=== PATIENT | female | born 1960 | race Caucasian/White ===

== ENCOUNTER 2020-08-11 07:36 | Outpatient (REF) | payer BC, SELFPAY ==
[2020-08-11 08:16] LABS: Hematocrit 40.8 % (37-47); Hemoglobin 13.4 g/dl (12.0-16.0); Mean Corpuscular HGB Conc 32.8 g/dl (31.0-35.0); Mean Corpuscular Hemoglobin 30.2 pg (27.0-33.0); Mean Corpuscular Volume 91.9 fL (80-98); Mean Platelet Volume 10.8 fL (9.4-12.3); Platelet Count 275 X10*3/uL (160-400); Red Blood Count 4.44 X10*6/uL (4.20-5.50); Red Cell Distribution Width 12.5 % (11.0-16.0); White Blood Count 6.1 X10*3/uL (4.8-10.8)
[2020-08-11 08:28] LABS: Alanine Aminotransferase 16 U/L (0-31); Albumin Level 4.3 g/dL (3.5-5.0); Alkaline Phosphatase 55 U/L (39-117); Anion Gap 11 (12-20); Aspartate Amino Transferase 18 U/L (5-31); Bilirubin Direct 0.2 mg/dL (0.0-0.5); Bilirubin Total 0.7 mg/dL (0.0-1.0); Blood Urea Nitrogen 15 mg/dL (9-16); Carbon Dioxide 29 mmol/L (22-29); Chloride 100 mmol/L (96-108); Cholesterol 222 mg/dL; Estimated Glomerular Filt Rate > 60; Glucose Random 95 mg/dL (60-115); HDL Cholesterol 77 mg/dL; LDL Cholesterol Calculated 132 mg/dl; Potassium 4.2 mmol/L (3.3-5.1); Sodium 136 mmol/L (135-145); Total Protein 6.9 g/dL (6.5-8.0); Triglycerides 65 mg/dL
[2020-08-15 14:01] LABS: Vitamin D 25-OH, D2 <4 ng/mL; Vitamin D 25-OH, D3 17 ng/mL; Vitamin D 25-OH, Total 17 ng/mL (30-100)
== END 2020-08-11 07:37 | disposition home or self-care (01) ==
LOC: HO.LAB 07:36
PROVIDERS: PCP Internal Medicine; Visit Provider Internal Medicine
DX: E78.00 Pure hypercholesterolemia, unspecified (principal)
CPT/HCPCS: 36415; 80048; 80061; 80076; 82306; 85027

== ENCOUNTER 2021-02-08 07:46 | Outpatient (REF) | payer BC, SELFPAY ==
[2021-02-08 08:29] LABS: Hemoglobin 13.6 g/dl (12.0-16.0); Mean Corpuscular Hemoglobin 30.4 pg (27.0-33.0); Mean Corpuscular Volume 89.5 fL (80-98); Mean Platelet Volume 10.7 fL (9.4-12.3); Platelet Count 304 X10*3/uL (160-400); Red Blood Count 4.47 X10*6/uL (4.20-5.50); Red Cell Distribution Width 12.6 % (11.0-16.0); White Blood Count 6.4 X10*3/uL (4.8-10.8)
[2021-02-08 08:44] LABS: Estimated Average Glucose 103 mg/dL; Hemoglobin A1c % 5.2 %
[2021-02-08 09:06] LABS: Alanine Aminotransferase 15 U/L (0-31); Albumin Level 4.3 g/dL (3.5-5.0); Alkaline Phosphatase 52 U/L (39-117); Aspartate Amino Transferase 19 U/L (5-31); Bilirubin Direct 0.2 mg/dL (0.0-0.5); Bilirubin Total 0.5 mg/dL (0.0-1.0); Cholesterol 222 mg/dL; HDL Cholesterol 72 mg/dL; LDL Cholesterol Calculated 134 mg/dl; Total Protein 6.8 g/dL (6.5-8.0); Triglycerides 83 mg/dL
[2021-02-08 09:12] LABS: Appearance Urine CLEAR; Color Urine YELLOW; Glucose Urine UA NEG (NEG); Leukocyte Esterase Urine NEG (NEG); Nitrite Urine NEG (NEG); PH 6.5 (5.0-8.0); Specific Gravity - Urine <= 1.005 (1.005-1.025); Urine Blood NEG (NEG); Urine Ketones NEG (NEG); Urine Protein NEG (NEG-TRACE)
== END 2021-02-08 07:47 | disposition home or self-care (01) ==
LOC: HO.LAB 07:46
PROVIDERS: PCP Internal Medicine; Visit Provider Internal Medicine
DX: I10 Essential (primary) hypertension (principal)
CPT/HCPCS: 36415; 80061; 80076; 81003; 83036; 84443; 85027

== ENCOUNTER 2022-01-24 07:51 | Outpatient (REF) | payer OTHER, SELFPAY ==
[2022-01-24 08:33] LABS: Hematocrit 40.3 % (37.0-47.0); Hemoglobin 13.8 g/dl (12.0-16.0); Mean Corpuscular HGB Conc 34.2 g/dl (31.0-35.0); Mean Corpuscular Hemoglobin 31.3 pg (27.0-33.0); Mean Corpuscular Volume 91.4 fL (80.0-98.0); Mean Platelet Volume 10.9 fL (9.4-12.3); Platelet Count 292 X10*3/uL (160-400); Red Blood Count 4.41 X10*6/uL (4.20-5.50); Red Cell Distribution Width 11.9 % (11.0-16.0); White Blood Count 5.8 X10*3/uL (4.8-10.8)
[2022-01-24 08:56] LABS: Alanine Aminotransferase 22 U/L (0-31); Albumin Level 4.4 g/dL (3.5-5.0); Alkaline Phosphatase 51 U/L (39-117); Anion Gap 17 (12-20); Aspartate Amino Transferase 20 U/L (5-31); Bilirubin Direct 0.3 mg/dL (0.0-0.5); Bilirubin Total 0.7 mg/dL (0.0-1.0); Blood Urea Nitrogen 13 mg/dL (9-16); Calcium 9.5 mg/dL (8.4-10.2); Carbon Dioxide 25 mmol/L (22-29); Chloride 98 mmol/L (96-108); Cholesterol 261 mg/dL; Estimated Glomerular Filt Rate > 60; Glucose Random 103 mg/dL (60-115); HDL Cholesterol 75 mg/dL; LDL Cholesterol Calculated 175 mg/dl; Potassium 4.5 mmol/L (3.3-5.1); Sodium 135 mmol/L (135-145); Triglycerides 59 mg/dL
[2022-01-24 09:20] LABS: Thyroid Stimulating Hormone 0.18 uIU/mL (0.32-4.0)
== END 2022-01-24 07:52 | disposition home or self-care (01) ==
LOC: HO.LAB 07:51
PROVIDERS: PCP Internal Medicine; Visit Provider Internal Medicine
DX: I10 Essential (primary) hypertension (principal); E78.00 Pure hypercholesterolemia, unspecified
CPT/HCPCS: 36415; 80048; 80061; 80076; 84443; 85027

== ENCOUNTER 2022-03-07 10:04 | Outpatient (REF) | payer OTHER, SELFPAY ==
[2022-03-07 11:36] LABS: Thyroid Stimulating Hormone 0.45 uIU/mL (0.32-4.0)
== END 2022-03-07 10:05 | disposition home or self-care (01) ==
LOC: HO.LAB 10:04
PROVIDERS: PCP Internal Medicine; Visit Provider Internal Medicine
DX: E03.9 Hypothyroidism, unspecified (principal)
CPT/HCPCS: 36415; 84443

== ENCOUNTER 2022-07-27 14:18 | Outpatient (REF) | payer OTHER, SELFPAY ==
--- NOTE | ~2022-07-27 | MM_ITS ---
EXAMINATION: MM SCREENING DIGITAL BREAST TOMOSYNTHESIS, BILATERAL CLINICAL INFORMATION: Screening. Asymptomatic. Status post right breast lumpectomy COMPARISON: Mammography: January 31, 2021 and studies dating back to November 07, 2018 TECHNIQUE: Digital breast tomosynthesis is performed in both the craniocaudal and mediolateral oblique views along with computer-aided detection (CAD). Synthesized 2D images are generated from the tomosynthesis. FINDINGS: The breasts are heterogeneously dense, which may obscure small masses (ACR BI-RADS breast composition Category c). There are no new significant masses, abnormal calcifications, or other abnormalities. Postsurgical and radiation change seen within the right breast. MM/MM tomosynthesis screening BI IMPRESSION: No significant changes from prior exam. ASSESSMENT: BI-RADS 2: Benign RECOMMENDATION: Routine annual mammography screening. This patient's information was entered into a reminder system with a target due date for their next mammogram.
== END 2022-07-27 14:19 | disposition home or self-care (01) ==
LOC: HO.MAMMO 14:18
PROVIDERS: Visit Provider Internal Medicine
DX: Z12.31 Encounter for screening mammogram for malignant neoplasm of breast (principal)
CPT/HCPCS: 77063; 77067

== ENCOUNTER 2022-11-08 08:26 | Outpatient (AMB) | payer OTHER, SELFPAY ==
--- NOTE | 2022-11-08 08:34 | MHC.PC.OV ---
Vital Signs 11/08/22 08:36 Height 5 ft 7 in Weight 194 lb 4 oz BMI 30.4 BP 140/80 H Blood Pressure Location Lt brachial Position Sitting Pulse 79 Pulse Source Pulse Oximeter Pulse Oximetry (%) 98 Oxygen Delivery Method Room Air Intake Visit Reasons: 9 month f/u Intake Note: Patient is here to follow up on HTN. Rod Machine Operator Required: No Licensed Prosthetist/Orthotist: Not Required per policy Accompanied by: Self / Same As Patient Allergies clindamycin Allergy (Mild, Verified 11/08/22 08:59) unknown amoxicillin Allergy (Unknown, Verified 11/08/22 08:59) hives environmental allergies Allergy (Mild, Uncoded 11/08/22 08:59) itch eye, runny nose, Medication List - Last Reconciled 11/08/22 by Catrachito Gay MD clonazepam (Klonopin) 0.5 mg PO DAILY fexofenadine (Rupal Allergy) 180 mg PO DAILY fluticasone propionate 50 mcg/actuation 1 spray intranasal DAILY hydrochlorothiazide 12.5 mg PO DAILY levothyroxine 112 mcg PO QAM lisinopril 10 mg PO DAILY red yeast rice 600 mg PO BID Tobacco use date assessed: 11/08/22 Dental Screening Dental Screen Date: 11/08/22 Did you have a dental visit in the last 12 months?: Yes Did you have a dental problem in the last 6 months where you did not have access to dental care?: No Was dental information given to patient?: Patient has dentist HPI 9 month f/u HPI Details 62-year-old female presents to the office to discuss her chronic medical conditions. Patient is compliant with all medications and reporting no side effects. Her blood pressure is in range. She has not gotten her blood work done yet. Patient has 2 swellings a in her neck on either side that she would like examined. She cannot recall the duration of the swellings. No weight loss. [facility] Medical History Allergic rhinitis Borderline hypercholesterolemia Breast cancer Essential (primary) hypertension Surgical History History of eyelid surgery History of lumpectomy of right breast History of wisdom tooth extraction Family History Mother No problems noted. Father No problems noted. Social History Housing: House Alcohol intake: current Alcohol intake frequency: holidays/special occasions only Alcohol type: wine Patient Tobacco Use Status: Former Tobacco user (2006) Quit Date: 2006 e-Cigarette/Vaping Use: Never Used Second Hand Smoke Exposure: No service: No Current occupational status: retired Cognitive needs: No Hearing needs: No Vision needs: Yes Questionnaire PHQ-9 Over the last 2 weeks, how often have you been bothered by any of the following problems? 1. Little interest or pleasure in doing things: not at all 2. Feeling down, depressed, or hopeless: not at all 3. Trouble falling or staying asleep, or sleeping too much: not at all 4. Feeling tired or having little energy: not at all 5. Poor appetite or overeating: not at all 6. Feeling bad about yourself - or that you are a failure or have let yourself or your family down: not at all 7. Trouble concentrating on things, such as reading the newspaper or watching television: not at all 8. Moving or speaking so slowly that other people could have noticed. Or the opposite - being so fidgety or restless that you have been moving around a lot more than usual: not at all 9. Thoughts that you would be better off or of hurting yourself in some way: not at all Total score: 0 Depression Screening Interpretation: Negative Source: Developed by Drs. Jovon Austin, Sera Peña, Tonny Gilmore and colleagues, with an educational osmar from [employer]. Thrive Questionnaire Date Thrive assessed: 11/08/22 I am a: Patient What is your living situation today?: I have a steady place to live Within the past 12 months, did the food you bought not last and you didn't have the money to get more?: Never true Within the past 12 months, did you worry whether your food would run out before you got money to buy more?: Never true Do you have trouble paying for medicines?: No Do you have trouble getting transportation to medical appointments?: No Do you have trouble paying your heating and electricity bill?: No Do you have trouble taking care of your child, family member or friend?: No Do you have trouble with day-to-day activities such as bathing, preparing meals, shopping, managing finances, etc.?: No Are you currently unemployed and looking for a job?: No Are you interested in more education?: No Currently or been in a relationship where the following occur: no concerns reported AUDIT C Alcohol Use Questionnaire (AUDIT-C) 1. How often do you have a drink containing alcohol?: Monthly or less 2. How many drinks containing alcohol do you have on a typical day when you are drinking?: 1 or 2 Total Score: 1 ISRAEL-7 AMB Questionnaire ISRAEL-7 Date ISRAEL - 7 assessed: 11/08/22 Feeling nervous, anxious, or on edge: 1 = Several days Not being able to stop or control worryin = Not at all Worrying too much about different things: 0 = Not at all Trouble relaxin = Not at all Being so restless that it is hard to sit still: 0 = Not at all Becoming easily annoyed or irritable: 0 = Not at all Feeling afraid as if something awful might happen: 0 = Not at all Total ISRAEL-7 score (0-4 normal; 5-9 mild; 10-14 moderate; 15-21 severe): 1 Source: Developed by Drs. Jovon Austin, Sera Peña, Tonny Gilmore and colleagues, with an educational osmar from [employer]. Physical exam (Primary Care) Vital Signs: Last Vital Signs Pulse 79 11/08/22 08:36 BP 140/80 H 11/08/22 08:36 Pulse Ox 98 11/08/22 08:36 Oxygen Delivery Method Room Air 11/08/22 08:36 Care Plan Goal for BP management: Blood pressure is in range. Continue current medications. BMI result Body Mass Index 30.4 BMI Assessment/Plan discussion: High (1 lb per week weight loss suggested.) BMI High, discussed plan: lifestyle Tobacco/Smoking Status: Tobacco use Status Tobacco use date assessed 11/08/22 11/08/22 08:37 Patient Tobacco Use Status Former Tobacco user (2006) 11/08/22 08:37 e-Cigarette/Vaping Use Never Used 11/08/22 08:37 PHQ-9: PHQ-9 Score PHQ-9: Total score 0 11/08/22 08:37 Depression Screening Interpretation: Negative Thrive Assessment: Date of Thrive Assessment Date Thrive assessed 11/08/22 11/08/22 08:37 Currently or been in a relationship where the following occur: no concerns reported Advance Care Planning discussion: On file, no changes Date of discussion: 11/08/22 Who was present: Patient Forms completed: MOLST Time spent: 1-15 minutes, on File Actual minutes spent: 5 Const General: cooperative, healthy appearing and comfortable HENMT Other: Neck: Bilateral swelling, mostly in the supraclavicular fossa, indistinct margin. Head: Yes normal to inspection and Yes atraumatic Eyes General: appearance normal, both eyes and all related structures Neck Neck: Yes normal visual inspection and Yes full ROM Chest Chest palpation & inspection: normal inspection of the chest and crepitus Resp Effort & Inspection: normal respiratory effort Auscultation: clear to auscultation bilaterally Cardio Jugular venous distension: no JVD Palpation: normal PMI Rate: regular rate Heart sounds: S1 normal heart sound present and S2 normal heart sound present GI Palpation (GI): Soft to palpation, Tenderness to palpation present (GI) and No hepatosplenomegaly present Extrem General: Yes normal to inspection and Yes full ROM Assessment and Plan Assessment & Plan (1) Borderline hypercholesterolemia: Code(s): E78.00 - Pure hypercholesterolemia, unspecified Plan: Blood work ordered. Will call with results. (2) Essential (primary) hypertension: Code(s): I10 - Essential (primary) hypertension Plan: Blood pressure in range. Will continue medications at same dosage. Blood work has been ordered. (3) Breast cancer: Code(s): C50.919 - Malignant neoplasm of unspecified site of unspecified female breast Plan: Condition is stable. (4) Lipoma: Code(s): D17.9 - Benign lipomatous neoplasm, unspecified Plan: Neck swelling is most likely a lipoma. Will await ultrasound results. Orders: Orders Basic Metabolic Panel Today C50.919 - Malignant neoplasm of unspecified site of unspecified female breast, E78.00 - Pure hypercholesterolemia, unspecified, I10 - Essential (primary) hypertension Hemoglobin A1c Today C50.919 - Malignant neoplasm of unspecified site of unspecified female breast, E78.00 - Pure hypercholesterolemia, unspecified, I10 - Essential (primary) hypertension Lipid Panel Today C50.919 - Malignant neoplasm of unspecified site of unspecified female breast, E78.00 - Pure hypercholesterolemia, unspecified, I10 - Essential (primary) hypertension Liver Panel Today C50.919 - Malignant neoplasm of unspecified site of unspecified female breast, E78.00 - Pure hypercholesterolemia, unspecified, I10 - Essential (primary) hypertension Thyroid Stimulating Hormone Today C50.919 - Malignant neoplasm of unspecified site of unspecified female breast, E78.00 - Pure hypercholesterolemia, unspecified, I10 - Essential (primary) hypertension Complete Blood Count no Diff Today C50.919 - Malignant neoplasm of unspecified site of unspecified female breast, E78.00 - Pure hypercholesterolemia, unspecified, I10 - Essential (primary) hypertension UA and rflx microscopic Today C50.919 - Malignant neoplasm of unspecified site of unspecified female breast, E78.00 - Pure hypercholesterolemia, unspecified, I10 - Essential (primary) hypertension XR DEXA axial skeleton Today M81.0 - Age-related osteoporosis without current pathological fracture US soft tiss head and/or neck Today D17.9 - Benign lipomatous neoplasm, unspecified Coding Level of Care Code Est Pt Level 4 (71117) Diagnoses Borderline hypercholesterolemia E78.00 Essential (primary) hypertension I10 Breast cancer C50.919 Lipoma D17.9 Additional Codes Vital Signs *Quality* - Advance Care Planning discussion: On file, no changes ([id number]) Vital Signs *Quality* - Time spent: 1-15 minutes, on File ([id number])
[2022-11-08 08:36] VITALS: BP 140/80; PULSE 79; O2SAT 98; BMI 30.4
== END 2022-11-08 08:52 | disposition home or self-care (01) ==
PROVIDERS: PCP Internal Medicine; Visit Provider Internal Medicine
DX: E78.00 Pure hypercholesterolemia, unspecified (principal); I10 Essential (primary) hypertension; C50.911 Malignant neoplasm of unspecified site of right female breast; D17.0 Benign lipomatous neoplasm of skin and subcutaneous tissue of head, face and neck
CPT/HCPCS: 1123F; 99214

== ENCOUNTER 2022-11-16 08:02 | Outpatient (REF) | payer OTHER, SELFPAY ==
--- NOTE | ~2022-11-16 | MM_ITS ---
EXAMINATION: BONE DENSITOMETRY CLINICAL INDICATION: Age-related osteoporosis without current pathological fracture. COMPARISON: This is the patient's baseline examination. TECHNIQUE: Using a RED [employer]OVA DXA System (software version: 13.1) manufactured by [employer], dual-energy x-ray absorptiometry was performed of the lumbar spine and left hip. The images are of good technical quality. Summary results are attached. FINDINGS: AP SPINE L1-L4: BMD 0.922 g/cm2, Z-score -1.5, T-score -2.1, osteopenia. LEFT FEMUR, NECK: BMD 0.871 g/cm2, Z-score -0.3, T-score -1.2, osteopenia. LEFT FEMUR, TOTAL: BMD 0.951 g/cm2, Z-score 0.1, T-score -0.4, normal. IDENTIFIED RISK FACTORS: Height loss, history of fracture (adult). Early menopause, secondary osteoporosis. HISTORY OF FRACTURE: Other. MEDICATIONS: None listed. MM/XR DEXA axial skeleton IMPRESSION: 1. DIAGNOSIS: Osteopenia based on the lowest T-score value of -2.1 in the lumbar spine applying World Health Organization criteria. 2. 10-YEAR FRACTURE RISK PREDICTION, FRAX: Major osteoporotic fracture (clinical spine, forearm, hip or shoulder) 12.7%. Hip fracture 1.0%. 3. Treatment Recommendations: NOF guidelines recommend consideration for treatment in postmenopausal women and men age 50 and older presenting with the following: -A hip or vertebral (clinical or morphometric) fracture. -T-score less than or equal to -2.5 at the femoral neck or spine after appropriate evaluation to exclude secondary causes. -Low bone mass at the hip or spine and a 10-year fracture probability by FRAX of greater than or equal to 3% for hip fracture or greater than or equal to 20% for major osteoporotic fracture based on the [place] adapted WHO algorithm. 4. Other Recommendations: All treatment decisions require clinical judgment and consideration of individual patient factors, including patient preferences, comorbidities, previous drug use, risk factors not captured in the FRAX model (e.g. frailty, falls, vitamin D deficiency, increased bone turnover, interval significant decline in bone density) and possible under or overestimation of fracture risk by FRAX. Additional medical evaluation for secondary cause of low bone mineral density may be appropriate. FUTURE SCAN RECOMMENDATION: People with diagnosed cases of osteoporosis or at high risk for fracture should have regular bone mineral density tests. For patients eligible for Medicare, routine testing is allowed once every 2 years. The testing frequency can be increased to one year for patients who have rapidly progressing disease, those who are receiving or discontinuing medical therapy to restore bone mass, or have additional risk factors.
== END 2022-11-16 08:03 | disposition home or self-care (01) ==
LOC: HO.MAMMO 08:02
PROVIDERS: Visit Provider Internal Medicine
DX: Z13.820 Encounter for screening for osteoporosis (principal); M81.0 Age-related osteoporosis without current pathological fracture; Z78.0 Asymptomatic menopausal state
CPT/HCPCS: 77080

== ENCOUNTER → 2022-11-16 08:15 | Outpatient (BNV) | payer OTHER, SELFPAY | PROVIDERS: Visit Provider Radiology Diagnostic Radiology | DX: M81.0 Age-related osteoporosis without current pathological fracture (principal) | CPT/HCPCS: 77080 ==

== ENCOUNTER 2022-11-20 06:54 | Outpatient (REF) | payer OTHER, SELFPAY ==
--- NOTE | ~2022-11-20 | US_ITS ---
EXAMINATION: US SOFT TISSUE NECK CLINICAL INFORMATION: Supraclavicular swelling COMPARISON: None available. TECHNIQUE: Ultrasound of the neck soft tissues is performed with high- frequency perla-scale imaging and color Doppler. FINDINGS: Bilateral supraclavicular nodes measuring up to 1.1 x 0.6 m on the right and 0.6 x 0.4 cm on the left. These maintain normal hilar architecture. US/US soft tiss head and/or neck IMPRESSION: 1. Bilateral supraclavicular nodes not pathologically enlarged which maintains normal hilar architecture. If any clinically worrisome features 3 month ultrasound follow-up to assess stability could be obtained.
[2022-11-20 08:14] LABS: Hemoglobin 14.1 g/dl (12.0-16.0); Mean Corpuscular HGB Conc 33.6 g/dl (31.0-35.0); Mean Corpuscular Hemoglobin 30.5 pg (27.0-33.0); Mean Corpuscular Volume 90.9 fL (80.0-98.0); Mean Platelet Volume 11.5 fL (9.4-12.3); Platelet Count 299 X10*3/uL (160-400); Red Blood Count 4.62 X10*6/uL (4.20-5.50); Red Cell Distribution Width 12.6 % (11.0-16.0); White Blood Count 6.4 X10*3/uL (4.8-10.8)
[2022-11-20 08:18] LABS: Estimated Average Glucose 103 mg/dL; Hemoglobin A1c % 5.2 %
[2022-11-20 08:49] LABS: Alanine Aminotransferase 22 U/L (0-31); Albumin Level 4.1 g/dL (3.5-5.0); Alkaline Phosphatase 63 U/L (39-117); Anion Gap 16 (12-20); Aspartate Amino Transferase 22 U/L (5-31); Bilirubin Direct 0.2 mg/dL (0.0-0.5); Bilirubin Total 0.5 mg/dL (0.0-1.0); Blood Urea Nitrogen 11 mg/dL (9-16); Calcium 9.2 mg/dL (8.4-10.2); Carbon Dioxide 21 mmol/L (22-29); Chloride 103 mmol/L (96-108); Cholesterol 250 mg/dL; Estimated Glomerular Filt Rate > 60; Glucose Random 108 mg/dL (60-115); HDL Cholesterol 57 mg/dL; LDL Cholesterol Calculated 152 mg/dl; Potassium 3.8 mmol/L (3.3-5.1); Sodium 136 mmol/L (135-145); Total Protein 7.1 g/dL (6.5-8.0); Triglycerides 205 mg/dL
[2022-11-20 09:03] LABS: Thyroid Stimulating Hormone 3.88 uIU/mL (0.32-4.0)
[2022-11-20 19:41] LABS: Appearance Urine Clear; Color Urine Yellow; Glucose Urine UA Negative (Negative); Leukocyte Esterase Urine Negative (Negative); Nitrite Urine Negative (Negative); Urine Blood Negative (Negative); Urine Ketones Negative (Negative); Urine Protein Negative (Neg-Trace)
== END 2022-11-20 06:55 | disposition home or self-care (01) ==
LOC: HO.US 06:54
PROVIDERS: PCP Internal Medicine; Visit Provider Internal Medicine
DX: D17.9 Benign lipomatous neoplasm, unspecified (principal); C50.919 Malignant neoplasm of unspecified site of unspecified female breast; E78.00 Pure hypercholesterolemia, unspecified; I10 Essential (primary) hypertension
CPT/HCPCS: 36415; 76536; 80048; 80061; 80076; 81003; 83036; 84443; 85027

== ENCOUNTER 2023-05-24 08:45 | Outpatient (AMB) | payer OTHER, SELFPAY ==
--- NOTE | 2023-05-24 08:46 | MHC.PC.OV ---
Vital Signs 05/24/23 08:48 Height 5 ft 7 in Weight 191 lb 2 oz BMI 29.9 BP 122/78 Blood Pressure Location Lt brachial Position Sitting Pulse 110 H Pulse Source Pulse Oximeter Pulse Oximetry (%) 98 Oxygen Delivery Method Room Air Intake Visit Reasons: 6mth f/u ( Medication) Intake Note: Patient is here to follow up on HTN, Hypercholesterolemia and medication review. Complaint of scratchy throat, sinus congestion, had covid early April 2023 Therapy Technician Required: No Remote Sensing Analyst: Not Required per policy Accompanied by: Self / Same As Patient Allergies clindamycin Allergy (Mild, Verified 05/27/23 18:14) unknown amoxicillin Allergy (Unknown, Verified 05/27/23 18:14) hives environmental allergies Allergy (Mild, Uncoded 05/27/23 18:14) itch eye, runny nose, Medication List - Last Reconciled 05/27/23 by Catrachito Gay MD atorvastatin 10 mg PO BEDTIME cholecalciferol (vitamin D3) (Dialyvite Vitamin D3 Max) 1,250 mcg PO QWEEK clonazepam (Klonopin) 0.5 mg PO DAILY fexofenadine (Rupal Allergy) 180 mg PO DAILY hydrochlorothiazide 12.5 mg PO DAILY levothyroxine 112 mcg PO QAM lisinopril 10 mg PO DAILY Tobacco use date assessed: 05/24/23 Fall risk assessment: No Falls in past year Last assessed Fall Risk: 05/24/23 Dental Screening Dental Screen Date: 05/24/23 Did you have a dental visit in the last 12 months?: Yes Did you have a dental problem in the last 6 months where you did not have access to dental care?: No Was dental information given to patient?: Patient has dentist HPI 6mth f/u ( Medication) HPI Details 63-year-old female presents to the office to discuss her chronic medical conditions. Her previous ultrasound of the neck had suggested lymph nodes with normal architecture. The swelling is still present. There has been no increase or decrease in size. No associated pain Patient otherwise has been in good health. Able to function and do all activities of daily living. [facility] Medical History (Updated 05/27/23 @ 18:17 by Catrachito Gay MD) Lymphadenopathy Breast cancer Essential (primary) hypertension Allergic rhinitis Borderline hypercholesterolemia Surgical History History of eyelid surgery History of lumpectomy of right breast History of wisdom tooth extraction Family History Mother No problems noted. Father No problems noted. Social History Housing: House Alcohol intake: current Alcohol intake frequency: holidays/special occasions only Alcohol type: wine Patient Tobacco Use Status: Former Tobacco user (2006) Quit Date: 2006 e-Cigarette/Vaping Use: Never Used Second Hand Smoke Exposure: No service: No Current occupational status: retired Cognitive needs: No Hearing needs: No Vision needs: Yes Questionnaire PHQ-9 Over the last 2 weeks, how often have you been bothered by any of the following problems? 1. Little interest or pleasure in doing things: not at all 2. Feeling down, depressed, or hopeless: not at all 3. Trouble falling or staying asleep, or sleeping too much: not at all 4. Feeling tired or having little energy: not at all 5. Poor appetite or overeating: not at all 6. Feeling bad about yourself - or that you are a failure or have let yourself or your family down: not at all 7. Trouble concentrating on things, such as reading the newspaper or watching television: not at all 8. Moving or speaking so slowly that other people could have noticed. Or the opposite - being so fidgety or restless that you have been moving around a lot more than usual: not at all 9. Thoughts that you would be better off or of hurting yourself in some way: not at all Total score: 0 Depression Screening Interpretation: Negative Depression Screening Done: Yes Source: Developed by Drs. Jovon Austin, Sera Peña, Tonny Gilmore and colleagues, with an educational osmar from [employer]. Thrive Questionnaire Date Thrive assessed: 05/24/23 I am a: Patient What is your living situation today?: I have a steady place to live Within the past 12 months, did the food you bought not last and you didn't have the money to get more?: Never true Within the past 12 months, did you worry whether your food would run out before you got money to buy more?: Never true Do you have trouble paying for medicines?: No Do you have trouble getting transportation to medical appointments?: No Do you have trouble paying your heating and electricity bill?: No Do you have trouble taking care of your child, family member or friend?: No Do you have trouble with day-to-day activities such as bathing, preparing meals, shopping, managing finances, etc.?: No Are you currently unemployed and looking for a job?: No Are you interested in more education?: No Currently or been in a relationship where the following occur: no concerns reported THRIVE Score: 0 AUDIT C Alcohol Use Questionnaire (AUDIT-C) 1. How often do you have a drink containing alcohol?: Monthly or less 2. How many drinks containing alcohol do you have on a typical day when you are drinking?: 1 or 2 Total Score: 1 ISRAEL-7 AMB Questionnaire ISRAEL-7 Date ISRAEL - 7 assessed: 05/24/23 Feeling nervous, anxious, or on edge: 0 = Not at all Not being able to stop or control worryin = Not at all Worrying too much about different things: 0 = Not at all Trouble relaxin = Not at all Being so restless that it is hard to sit still: 0 = Not at all Becoming easily annoyed or irritable: 0 = Not at all Feeling afraid as if something awful might happen: 0 = Not at all Total ISRAEL-7 score (0-4 normal; 5-9 mild; 10-14 moderate; 15-21 severe): 0 Source: Developed by Drs. Jovon Austin, Sera Peña, Tonny Gilmore and colleagues, with an educational osmar from [employer]. Physical exam (Primary Care) Vital Signs: Last Vital Signs Pulse 110 H 05/24/23 08:48 BP 122/78 05/24/23 08:48 Pulse Ox 98 05/24/23 08:48 Oxygen Delivery Method Room Air 05/24/23 08:48 BMI result Body Mass Index 29.9 Tobacco/Smoking Status: Tobacco use Status Tobacco use date assessed 05/24/23 05/24/23 08:51 Patient Tobacco Use Status Former Tobacco user (2006) 05/24/23 08:51 e-Cigarette/Vaping Use Never Used 05/24/23 08:51 PHQ-9: PHQ-9 Score PHQ-9: Total score 0 05/24/23 08:51 Depression Screening Interpretation: Negative Thrive Assessment: Date of Thrive Assessment Date Thrive assessed 05/24/23 05/24/23 08:51 Currently or been in a relationship where the following occur: no concerns reported Const General: cooperative and healthy appearing Nutritional Appearance: well nourished Orientation/consciousness: patient oriented x3 Limitations: no limitations HENMT Head: Yes normal to inspection Eyes General: appearance normal, both eyes and all related structures Neck Other: Persisting swelling bilaterally. No change in size. Neck: Yes normal visual inspection Chest Chest palpation & inspection: normal palpation of entire chest wall Resp Effort & Inspection: normal respiratory effort Neuro General: patient oriented x3 Assessment and Plan Assessment & Plan (1) Borderline hypercholesterolemia: Code(s): E78.00 - Pure hypercholesterolemia, unspecified Plan: Fasting bw has been requested. Will call with results. (2) Essential (primary) hypertension: Code(s): I10 - Essential (primary) hypertension Plan: BP is in range. Continue current medications. (3) Breast cancer: Code(s): C50.919 - Malignant neoplasm of unspecified site of unspecified female breast Plan: This condition is stable. (4) Lymphadenopathy: Code(s): R59.1 - Generalized enlarged lymph nodes Plan: US of the neck will be reordered to check the size of the lymphnodes Orders: Orders Complete Blood Count no Diff 05/24/23 C50.919 - Malignant neoplasm of unspecified site of unspecified female breast, E78.00 - Pure hypercholesterolemia, unspecified, I10 - Essential (primary) hypertension Liver Panel 05/24/23 C50.919 - Malignant neoplasm of unspecified site of unspecified female breast, E78.00 - Pure hypercholesterolemia, unspecified, I10 - Essential (primary) hypertension Lipid Panel 05/24/23 C50.919 - Malignant neoplasm of unspecified site of unspecified female breast, E78.00 - Pure hypercholesterolemia, unspecified, I10 - Essential (primary) hypertension Vitamin D 25-OH (D2 and D3) 05/24/23 C50.919 - Malignant neoplasm of unspecified site of unspecified female breast, E78.00 - Pure hypercholesterolemia, unspecified, I10 - Essential (primary) hypertension Basic Metabolic Panel 05/24/23 C50.919 - Malignant neoplasm of unspecified site of unspecified female breast, E78.00 - Pure hypercholesterolemia, unspecified, I10 - Essential (primary) hypertension Thyroid Stimulating Hormone 05/24/23 C50.919 - Malignant neoplasm of unspecified site of unspecified female breast, E78.00 - Pure hypercholesterolemia, unspecified, I10 - Essential (primary) hypertension Coding Level of Care Code Est Pt Level 4 (21156) Diagnoses Borderline hypercholesterolemia E78.00 Essential (primary) hypertension I10 Breast cancer C50.919 Lymphadenopathy R59.1
[2023-05-24 08:48] VITALS: BP 122/78; PULSE 110; O2SAT 98; BMI 29.9
== END 2023-05-24 09:43 | disposition home or self-care (01) ==
PROVIDERS: PCP Internal Medicine; Visit Provider Internal Medicine
DX: E78.00 Pure hypercholesterolemia, unspecified (principal); I10 Essential (primary) hypertension; C50.919 Malignant neoplasm of unspecified site of unspecified female breast; R59.1 Generalized enlarged lymph nodes
CPT/HCPCS: 99214

== ENCOUNTER 2023-06-19 07:19 | Outpatient (REF) | payer OTHER, SELFPAY ==
--- NOTE | ~2023-06-19 | US_ITS ---
EXAMINATION: US SOFT TISSUE HEAD/NECK CLINICAL INFORMATION: Generalized enlarged lymph nodes. COMPARISON: Ultrasound soft tissue neck 11/20/2022. TECHNIQUE: Linear transducer perla-scale and color Doppler examination of the bilateral subclavicular areas. FINDINGS: A reniform right supraclavicular hypoechoic mass with echogenic center and vascular flow to the hilum measures 0.9 x 0.5 x 0.4 cm. A reniform right supraclavicular hypoechoic mass with echogenic center and vascular flow to the hilum measures 0.8 x 0.4 x 0.4 cm. A reniform left supraclavicular hypoechoic mass measures 0.7 x 0.4 x 0.6 cm. A reniform left supraclavicular hypoechoic mass measures 0.9 x 0.4 x 0.4 cm with echogenic center and vascular flow to the hilum. US/US soft tiss head and/or neck IMPRESSION: Bilateral supraclavicular lymph nodes as described above. These lymph nodes are subcentimeter with benign architecture. There is overall stability. The decision to follow the area of concern should be based on the clinical assessment. If clinically indicated further cross-sectional imaging could be performed.
[2023-06-19 07:44] LABS: Hematocrit 39.7 % (37.0-47.0); Hemoglobin 13.5 g/dl (12.0-16.0); Mean Corpuscular Volume 88.2 fL (80.0-98.0); Mean Platelet Volume 10.6 fL (9.4-12.3); Platelet Count 311 X10*3/uL (160-400); Red Cell Distribution Width 12.4 % (11.0-16.0); White Blood Count 6.8 X10*3/uL (4.8-10.8)
[2023-06-19 08:19] LABS: Alanine Aminotransferase 24 U/L (0-31); Albumin Level 4.2 g/dL (3.5-5.0); Alkaline Phosphatase 60 U/L (39-117); Anion Gap 12 (12-20); Aspartate Amino Transferase 21 U/L (5-31); Bilirubin Direct 0.2 mg/dL (0.0-0.5); Bilirubin Total 0.7 mg/dL (0.0-1.0); Blood Urea Nitrogen 12 mg/dL (9-16); Calcium 9.3 mg/dL (8.4-10.2); Carbon Dioxide 27 mmol/L (22-29); Chloride 97 mmol/L (96-108); Cholesterol 193 mg/dL (<200); Estimated Glomerular Filt Rate > 60; Glucose Random 108 mg/dL (60-115); HDL Cholesterol 74 mg/dL (>40); LDL Cholesterol Calculated 103 mg/dL (<100); Potassium 3.8 mmol/L (3.3-5.1); Sodium 132 mmol/L (135-145); Total Protein 7.1 g/dL (6.5-8.0); Triglycerides 83 mg/dL (<150)
[2023-06-19 08:35] LABS: Thyroid Stimulating Hormone 0.25 uIU/mL (0.32-4.0)
[2023-06-23 15:49] LABS: Vitamin D 25-OH, D2 <4 ng/mL; Vitamin D 25-OH, D3 54 ng/mL; Vitamin D 25-OH, Total 54 ng/mL (30-100)
== END 2023-06-19 07:20 | disposition home or self-care (01) ==
LOC: HO.US 07:19
PROVIDERS: PCP Internal Medicine; Visit Provider Internal Medicine
DX: E78.00 Pure hypercholesterolemia, unspecified (principal); I10 Essential (primary) hypertension; C50.919 Malignant neoplasm of unspecified site of unspecified female breast; R59.1 Generalized enlarged lymph nodes
CPT/HCPCS: 36415; 76536; 80048; 80061; 80076; 82306; 84443; 85027

== ENCOUNTER 2023-08-01 09:02 | Outpatient (AMB) | payer OTHER, SELFPAY ==
--- NOTE | 2023-08-01 09:03 | A.OFFVIS_ITS ---
Intake Vital Signs 08/01/23 09:11 Height 5 ft 7 in Weight 193 lb BMI 30.2 BP 147/78 H Blood Pressure Location Lt brachial Position Sitting Pulse 80 Intake Visit Reasons: enlarged lymph nodes RT supraclavicular Intake Note: This patient presents for an assessment for enlarged lymph nodes RT supraclavicular. Pt c/o; reports bilateral supraclavicular englarged lymph nodes, reports no pain, redness or dysphagia. Account Management Specialist Required: No Accompanied by: Self / Same As Patient Allergies clindamycin Allergy (Mild, Verified 08/01/23 09:12) unknown amoxicillin Allergy (Unknown, Verified 08/01/23 09:12) hives environmental allergies Allergy (Mild, Uncoded 08/01/23 09:12) itch eye, runny nose, Medication List - Last Reconciled 08/01/23 by Juan Cruz MD atorvastatin 10 mg PO BEDTIME cholecalciferol (vitamin D3) (Dialyvite Vitamin D3 Max) 1,250 mcg PO QWEEK clonazepam (Klonopin) 0.5 mg PO DAILY fexofenadine (Rupal Allergy) 180 mg PO DAILY hydrochlorothiazide 12.5 mg PO DAILY levothyroxine 112 mcg PO QAM lisinopril 10 mg PO DAILY Do you need a note to return to daycare/school/sports/work: No HPI enlarged lymph nodes RT supraclavicular HPI Details 63-year-old female referred for cervical lymph nodes. She actually says that she has noticed this fatty bump on both sides of the supraclavicular fossa for several months now. He had been sent for an ultrasound of the neck for this and this showed subcentimeter on both the left and the right supraclavicular areas. This did not appear to be pathologic She denies any fever chills or night sweats. She used to be a smoker but has quit for many years She also has history of right breast lumpectomy and axillary dissection for right breast cancer 30 years ago. She has had chronic lymphedema of the right arm since that time. [facility] Medical History (Updated 08/01/23 @ 09:33 by Juan Cruz MD) History of breast cancer Lymphadenopathy Breast cancer Essential (primary) hypertension Allergic rhinitis Borderline hypercholesterolemia Surgical History History of eyelid surgery History of lumpectomy of right breast History of wisdom tooth extraction Family History Mother No problems noted. Father No problems noted. Social History Housing: House Alcohol intake: current Alcohol intake frequency: holidays/special occasions only Alcohol type: wine Patient Tobacco Use Status: Former Tobacco user (2006) Quit Date: 2006 e-Cigarette/Vaping Use: Never Used Second Hand Smoke Exposure: No service: No Current occupational status: retired Cognitive needs: No Hearing needs: No Vision needs: Yes Review of Systems Const Denies chills and Denies fever(s) Card Denies chest pain, Denies dyspnea and Denies dyspnea on exertion Resp Denies cough, Denies dyspnea and Denies dyspnea on exertion GI Denies hematochezia and Denies change in bowel habits Denies hematuria Musc Denies back pain and Denies limited range of motion Neuro Denies focal weakness and Denies convulsions Psych Denies depression and Denies mood swings Physical Exam Vital Signs: Last Vital Signs Pulse 80 08/01/23 09:11 BP 147/78 H 08/01/23 09:11 BMI result Body Mass Index 30.2 Const General: comfortable and no acute distress Orientation/consciousness: patient oriented x3 Neck Other: On both supra clavicular areas is note of fatty prominence consistent with lipomatous tissue. This has lateral and symmetrical. There is no palpable lymphadenopathy on both sides of the neck Neck: Yes no lymphadenopathy Resp Auscultation: clear to auscultation bilaterally Cardio Rhythm: regular rhythm GI Palpation (GI): Soft to palpation, nontender and no guarding Neuro General: patient oriented x3 Assessment & Plan Assessment & Plan (1) Lymphadenopathy: Code(s): R59.1 - Generalized enlarged lymph nodes Plan: She points to fatty prominences on both the left and the right supraclavicular areas. These are both soft and consistent with fatty tissue or lipomas. There has no significant induration I do not feel any palpable lymphadenopathy. Review of her ultrasound shows that she has cm lymph nodes on both the left and right side that do not appear pathologic. This is separate from the fatty prominence that she is pointing to. I told her that she does not require any surgical intervention for now. We may repeat her ultrasound in 6 months or so but it is unlikely that this appeared to be pathologic at this time. (2) History of breast cancer: Code(s): Z85.3 - Personal history of malignant neoplasm of breast Plan: She has a personal history of breast cancer at age of 29. She has never had any genetic testing. She says her sister had breast cancer as well and was negative for BRCA I explained to her the option of proceeding with genetic testing because of the cancer at a young age. I explained the implications to herself and her family. She is interested in this and I will schedule her for genetic counseling and genetic testing here in the office. Coding Level of Care Code New Pt Level 4 (53638) Diagnoses Lymphadenopathy R59.1 History of breast cancer Z85.3
[2023-08-01 09:11] VITALS: BP 147/78; PULSE 80; BMI 30.2
== END 2023-08-01 09:31 | disposition home or self-care (01) ==
PROVIDERS: PCP Internal Medicine; Visit Provider Surgery
DX: R59.1 Generalized enlarged lymph nodes (principal); Z85.3 Personal history of malignant neoplasm of breast
CPT/HCPCS: 99204

== ENCOUNTER → 2023-08-01 09:02 | Outpatient (BNVA) | payer OTHER, SELFPAY | PROVIDERS: PCP Internal Medicine; Visit Provider Surgery | DX: R59.1 Generalized enlarged lymph nodes (principal); Z85.3 Personal history of malignant neoplasm of breast | CPT/HCPCS: 99202 ==

== ENCOUNTER → 2023-08-07 08:52 | Outpatient (BNVA) | payer OTHER, SELFPAY | PROVIDERS: PCP Internal Medicine; Visit Provider Surgery | DX: Z13.79 Encounter for other screening for genetic and chromosomal anomalies (principal) | CPT/HCPCS: 99211 ==

== ENCOUNTER 2023-08-20 08:05 | Outpatient (REF) | payer OTHER, SELFPAY ==
--- NOTE | ~2023-08-20 | MM_ITS ---
EXAMINATION: MM SCREENING DIGITAL BREAST TOMOSYNTHESIS, BILATERAL CLINICAL INFORMATION: Screening. Asymptomatic. The patient is status post right breast conservation surgery for cancer in the upper outer quadrant. COMPARISON: Mammography: This study is compared with prior exams dating back to 2019. TECHNIQUE: Digital breast tomosynthesis is performed in both the craniocaudal and mediolateral oblique views along with computer-aided detection (CAD). Synthesized 2D images are generated from the tomosynthesis. FINDINGS: There are scattered areas of fibroglandular density (ACR BI-RADS breast composition Category b). There are no significant masses, abnormal calcifications, or other abnormalities. There are postsurgical changes in the upper outer quadrant of the right breast and right axilla. There is mild chronic skin thickening of the right breast consistent with prior treatment. MM/MM tomosynthesis screening BI IMPRESSION: No mammographic evidence of malignancy. ASSESSMENT: BI-RADS BI-RADS 2 - Benign Findings RECOMMENDATION: Routine annual mammography screening. 1 year F/U This examination should not preclude the clinical evaluation of a suspicious palpable abnormality. This patient's information was entered into a reminder system with a target due date for their next mammogram.
== END 2023-08-20 08:06 | disposition home or self-care (01) ==
LOC: HO.MAMMO 08:05
PROVIDERS: PCP Internal Medicine; Visit Provider Internal Medicine
DX: Z12.31 Encounter for screening mammogram for malignant neoplasm of breast (principal)
CPT/HCPCS: 77063; 77067

== ENCOUNTER → 2023-08-20 08:15 | Outpatient (BNV) | payer OTHER, SELFPAY | PROVIDERS: PCP Internal Medicine; Visit Provider Radiology Diagnostic Radiology | DX: Z12.31 Encounter for screening mammogram for malignant neoplasm of breast (principal) | CPT/HCPCS: 77063; 77067 ==

== ENCOUNTER 2023-09-05 09:17 | Outpatient (AMB) | payer OTHER, SELFPAY ==
--- NOTE | 2023-09-05 09:30 | A.OFFVIS_ITS ---
Intake Visit Reasons: Genetic Test results *Here* Intake Note: Genetic Test results *Here*. Store Stock Help Required: No Accompanied by: Self / Same As Patient Allergies clindamycin Allergy (Mild, Verified 09/05/23 09:33) unknown amoxicillin Allergy (Unknown, Verified 09/05/23 09:33) hives environmental allergies Allergy (Mild, Uncoded 09/05/23 09:33) itch eye, runny nose, Medication List - Last Reconciled 09/05/23 by Juan Cruz MD atorvastatin 10 mg PO BEDTIME cholecalciferol (vitamin D3) (Dialyvite Vitamin D3 Max) 1,250 mcg PO QWEEK clonazepam (Klonopin) 0.5 mg PO DAILY fexofenadine (Rupal Allergy) 180 mg PO DAILY hydrochlorothiazide 12.5 mg PO DAILY levothyroxine 112 mcg PO QAM lisinopril 10 mg PO DAILY HPI HPI Genetic Test results *Here*: Details: She is here for follow-up for her genetic testing. She had this genetic test done because of her personal history of breast cancer at age of 32. She denies any new complaints at this time. [facility] Medical History History of breast cancer Lymphadenopathy Breast cancer Essential (primary) hypertension Allergic rhinitis Borderline hypercholesterolemia Surgical History History of eyelid surgery History of lumpectomy of right breast History of wisdom tooth extraction Family History Mother No problems noted. Father No problems noted. Social History Housing: House Alcohol intake: current Alcohol intake frequency: holidays/special occasions only Alcohol type: wine Patient Tobacco Use Status: Former Tobacco user (2006) Quit Date: 2006 e-Cigarette/Vaping Use: Never Used Second Hand Smoke Exposure: No service: No Current occupational status: retired Cognitive needs: No Hearing needs: No Vision needs: Yes Review of Systems Const Denies chills and Denies fever(s) Card Denies chest pain, Denies dyspnea and Denies dyspnea on exertion Resp Denies cough, Denies dyspnea and Denies dyspnea on exertion GI Denies hematochezia and Denies change in bowel habits Denies hematuria Musc Denies back pain and Denies limited range of motion Neuro Denies focal weakness and Denies convulsions Psych Denies depression and Denies mood swings Physical Exam Const General: comfortable and no acute distress Resp Effort & Inspection: normal respiratory effort Cardio Rate: regular rate Assessment & Plan Assessment & Plan (1) History of breast cancer: Code(s): Z85.3 - Personal history of malignant neoplasm of breast Category: Medical Plan: Her [facility] genetic test did not reveal any adhesions. I explained this fin ding to her. However, she should continue to go for regular screening mammograms. She also is to have a follow-up ultrasound for her cervical lymphadenopathy in 6 months. Coding Level of Care Code Est Pt Level 3 (46898) Diagnoses History of breast cancer Z85.3
== END 2023-09-05 10:40 | disposition home or self-care (01) ==
PROVIDERS: PCP Internal Medicine; Visit Provider Surgery
DX: Z85.3 Personal history of malignant neoplasm of breast (principal)
CPT/HCPCS: 99213

== ENCOUNTER → 2023-09-05 09:17 | Outpatient (BNVA) | payer OTHER, SELFPAY | PROVIDERS: PCP Internal Medicine; Visit Provider Surgery | DX: Z71.2 Person consulting for explanation of examination or test findings (principal); Z85.3 Personal history of malignant neoplasm of breast | CPT/HCPCS: 99212 ==

== ENCOUNTER 2023-11-29 07:53 | Outpatient (AMB) | payer OTHER, SELFPAY ==
[2023-11-29 07:55] VITALS: BP 124/70; PULSE 80; O2SAT 95; BMI 30.4
--- NOTE | 2023-11-29 07:55 | A.OFFPC_ITS ---
Vital Signs 11/29/23 07:55 Height 5 ft 7 in Weight 194 lb BMI 30.4 BP 124/70 Blood Pressure Location Lt brachial Position Sitting Pulse 80 Pulse Source Pulse Oximeter Pulse Oximetry (%) 95 Oxygen Delivery Method Room Air Intake Visit Reasons: 6mth f/u Allergies clindamycin Allergy (Mild, Verified 11/29/23 08:16) unknown amoxicillin Allergy (Unknown, Verified 11/29/23 08:16) hives environmental allergies Allergy (Mild, Uncoded 11/29/23 08:16) itch eye, runny nose, Medication List - Last Reconciled 11/29/23 by Catrachito Gay MD atorvastatin 10 mg PO BEDTIME cholecalciferol (vitamin D3) (Dialyvite Vitamin D3 Max) 1,250 mcg PO QWEEK clonazepam (Klonopin) 0.5 mg PO DAILY fexofenadine (Rupal Allergy) 180 mg PO DAILY hydrochlorothiazide 12.5 mg PO DAILY levothyroxine 112 mcg PO QAM lisinopril 10 mg PO DAILY Tobacco use date assessed: 05/24/23 Fall risk assessment: No Falls in past year Last assessed Fall Risk: 11/29/23 Dental Screening Dental Screen Date: 05/24/23 HPI 6mth f/u HPI Details 63-year-old female presents to the offic e to discuss her chronic medical conditions. Patient is compliant with medications and at baseline state of health. Able to function and do all activities of daily living. Patient continues to drive and take care of her finances. [facility] Medical History History of breast cancer Lymphadenopathy Breast cancer Essential (primary) hypertension Allergic rhinitis Borderline hypercholesterolemia Surgical History History of eyelid surgery History of lumpectomy of right breast History of wisdom tooth extraction Family History Mother No problems noted. Father No problems noted. Social History Housing: House Alcohol intake: current Alcohol intake frequency: holidays/special occasions only Alcohol type: wine Patient Tobacco Use Status: Former Tobacco user (2006) Tobacco use type: Cigarette e-Cigarette/Vaping Use: Never Used Second Hand Smoke Exposure: No service: No Current occupational status: retired Cognitive needs: No Hearing needs: No Vision needs: Yes Questionnaire PHQ-9 Over the last 2 weeks, how often have you been bothered by any of the following problems? 1. Little interest or pleasure in doing things: not at all 2. Feeling down, depressed, or hopeless: not at all 3. Trouble falling or staying asleep, or sleeping too much: not at all 4. Feeling tired or having little energy: not at all 5. Poor appetite or overeating: not at all 6. Feeling bad about yourself - or that you are a failure or have let yourself or your family down: not at all 7. Trouble concentrating on things, such as reading the newspaper or watching television: not at all 8. Moving or speaking so slowly that other people could have noticed. Or the opposite - being so fidgety or restless that you have been moving around a lot more than usual: not at all 9. Thoughts that you would be better off or of hurting yourself in some way: not at all Total score: 0 Depression Screening Interpretation: Negative Depression Screening Done: Yes Source: Developed by Drs. Jovon Austin, Tonny Norman and colleagues, with an educational osmar from [employer]. Thrive Questionnaire Date Thrive assessed: 05/24/23 AUDIT C Alcohol Use Questionnaire (AUDIT-C) 1. How often do you have a drink containing alcohol?: Monthly or less 2. How many drinks containing alcohol do you have on a typical day when you are drinking?: 1 or 2 3. How often do you have six or more drinks on one occasion?: Never Total Score: 1 ISRAEL-7 AMB Questionnaire ISRAEL-7 Date ISRAEL - 7 assessed: 05/24/23 Source: Developed by Sera Sabillon Kurt Kroenke and colleagues, with an educational osmar from [employer]. Physical exam (Primary Care) Vital Signs: Last Vital Signs Pulse 80 11/29/23 07:55 BP 124/70 11/29/23 07:55 Pulse Ox 95 11/29/23 07:55 Oxygen Delivery Method Room Air 11/29/23 07:55 Care Plan Goal for BP management: Blood pressure is in range. BMI result Body Mass Index 30.4 Tobacco/Smoking Status: Tobacco use Status Tobacco use date assessed 05/24/23 11/29/23 08:00 Patient Tobacco Use Status Former Tobacco user (2006) 11/29/23 08:00 Tobacco use type Cigarette 11/29/23 08:00 e-Cigarette/Vaping Use Never Used 11/29/23 08:00 PHQ-9: PHQ-9 Score PHQ-9: Total score 0 11/29/23 08:00 Depression Screening Interpretation: Negative Thrive Assessment: Date of Thrive Assessment Date Thrive assessed 05/24/23 11/29/23 08:00 Const General: cooperative and healthy appearing Nutritional Appearance: well nourished Orientation/consciousness: patient oriented x3 Limitations: no limitations HENMT Head: Yes normal to inspection Eyes General: appearance normal, both eyes and all related structures Neck Neck: Yes normal visual inspection Chest Chest palpation & inspection: normal palpation of entire chest wall Resp Effort & Inspection: normal respiratory effort Neuro General: patient oriented x3 Assessment and Plan Assessment & Plan (1) Borderline hypercholesterolemia: Code(s): E78.00 - Pure hypercholesterolemia, unspecified Plan: Blood work has been ordered. Will call with results. (2) Essential (primary) hypertension: Code(s): I10 - Essential (primary) hypertension Plan: Blood pressure is stable. Continue current medications. (3) Breast cancer: Code(s): C50.919 - Malignant neoplasm of unspecified site of unspecified female breast Plan: Condition is stable. Up-to-date on mammograms. Coding Level of Care Code Est Pt Level 4 (99266) Complex EM visit Add On G2211 Diagnoses Borderline hypercholesterolemia E78.00 Essential (primary) hypertension I10 Breast cancer C50.919
== END 2023-11-29 08:15 | disposition home or self-care (01) ==
PROVIDERS: PCP Internal Medicine; Visit Provider Internal Medicine
DX: E78.00 Pure hypercholesterolemia, unspecified (principal); I10 Essential (primary) hypertension; C50.919 Malignant neoplasm of unspecified site of unspecified female breast
CPT/HCPCS: 99214; G2211

== ENCOUNTER 2024-05-19 07:41 | Outpatient (REF) | payer MEDICARE, MEDICAID, SELFPAY ==
[2024-05-19 08:50] LABS: Hematocrit 38.9 % (37.0-47.0); Hemoglobin 13.2 g/dl (12.0-16.0); Mean Corpuscular HGB Conc 33.9 g/dl (31.0-35.0); Mean Corpuscular Hemoglobin 30.3 pg (27.0-33.0); Mean Corpuscular Volume 89.4 fL (80.0-98.0); Mean Platelet Volume 10.7 fL (9.4-12.3); Platelet Count 306 X10*3/uL (160-400); Red Blood Count 4.35 X10*6/uL (4.20-5.50); Red Cell Distribution Width 12.6 % (11.0-16.0); White Blood Count 6.3 X10*3/uL (4.8-10.8)
[2024-05-19 08:52] LABS: Appearance Urine Clear; Color Urine Yellow; Glucose Urine UA Negative (Negative); Leukocyte Esterase Urine Negative (Negative); Nitrite Urine Negative (Negative); Urine Blood Negative (Negative); Urine Ketones Negative (Negative); Urine Protein Negative (Neg-Trace)
[2024-05-19 10:00] LABS: Alanine Aminotransferase 35 U/L (0-31); Albumin Level 4.2 g/dL (3.5-5.0); Alkaline Phosphatase 64 U/L (39-117); Anion Gap 12 (12-20); Aspartate Amino Transferase 30 U/L (5-31); Bilirubin Direct 0.2 mg/dL (0.0-0.5); Bilirubin Total 0.6 mg/dL (0.0-1.0); Blood Urea Nitrogen 15 mg/dL (9-16); Calcium 9.4 mg/dL (8.4-10.2); Carbon Dioxide 27 mmol/L (22-29); Chloride 100 mmol/L (96-108); Cholesterol 183 mg/dL (<200); Estimated Glomerular Filt Rate > 60; Glucose Random 104 mg/dL (60-115); HDL Cholesterol 77 mg/dL (>40); LDL Cholesterol Calculated 94 mg/dL (<100); Lipase 25 U/L (8-78); Potassium 4.2 mmol/L (3.3-5.1); Sodium 135 mmol/L (135-145); Total Protein 7.2 g/dL (6.5-8.0); Triglycerides 60 mg/dL (<150)
[2024-05-19 10:04] LABS: Thyroid Stimulating Hormone 0.97 uIU/mL (0.32-4.0)
== END 2024-05-19 07:42 | disposition home or self-care (01) ==
LOC: HO.LAB 07:41
PROVIDERS: PCP Internal Medicine; Visit Provider Internal Medicine
DX: I10 Essential (primary) hypertension (principal); E78.00 Pure hypercholesterolemia, unspecified; C50.919 Malignant neoplasm of unspecified site of unspecified female breast; K85.90 Acute pancreatitis without necrosis or infection, unspecified
CPT/HCPCS: 36415; 80048; 80061; 80076; 81003; 83690; 84443; 85027

== ENCOUNTER → 2024-05-29 07:56 | Outpatient (BNVA) | DX: I10 Essential (primary) hypertension (principal); E78.00 Pure hypercholesterolemia, unspecified ==

== ENCOUNTER 2024-09-12 08:07 | Outpatient (REF) | payer MEDICARE, SELFPAY | END 2024-09-12 08:08 | disposition home or self-care (01) | LOC: HO.MAMMO 08:07 | PROVIDERS: PCP Internal Medicine; Visit Provider Internal Medicine | DX: Z12.31 Encounter for screening mammogram for malignant neoplasm of breast (principal) | CPT/HCPCS: 77063; 77067 ==

== ENCOUNTER → 2024-09-12 08:15 | Outpatient (BNV) | payer MEDICARE, SELFPAY | PROVIDERS: PCP Internal Medicine; Visit Provider Internal Medicine | DX: Z12.31 Encounter for screening mammogram for malignant neoplasm of breast (principal) | CPT/HCPCS: 77063; 77067 ==

== ENCOUNTER 2024-11-21 10:15 | Outpatient (REF) | payer MEDICARE, SELFPAY ==
[2024-11-21 10:58] LABS: Hematocrit 40.4 % (37.0-47.0); Hemoglobin 13.9 g/dl (12.0-16.0); Mean Corpuscular HGB Conc 34.4 g/dl (31.0-35.0); Mean Corpuscular Hemoglobin 30.4 pg (27.0-33.0); Mean Corpuscular Volume 88.4 fL (80.0-98.0); NRBC Abs Auto 0.000 X10*3/uL (0.0-0.012); NRBC Pct Auto 0.0 /100WBC (0.0-0.2); Platelet Count 321 X10*3/uL (160-400); Red Blood Count 4.57 X10*6/uL (4.20-5.50); White Blood Count 6.9 X10*3/uL (4.8-10.8)
[2024-11-21 11:00] LABS: Appearance Urine Clear; Glucose Urine UA Negative (Negative); PH 6.5 (5.0-9.0); Specific Gravity - Urine 1.010 (1.005-1.025)
[2024-11-21 11:49] LABS: Alanine Aminotransferase 33 U/L (0-31); Albumin Level 4.8 g/dL (3.5-5.0); Alkaline Phosphatase 79 U/L (39-117); Anion Gap 13 (12-20); Aspartate Amino Transferase 31 U/L (5-31); Blood Urea Nitrogen 13 mg/dL (9-16); Calcium 9.1 mg/dL (8.4-10.2); Carbon Dioxide 28 mmol/L (22-29); Chloride 96 mmol/L (96-108); Cholesterol 201 mg/dL (<200); Estimated Glomerular Filt Rate > 60; HDL Cholesterol 78 mg/dL (>40); Potassium 4.1 mmol/L (3.3-5.1); Sodium 133 mmol/L (135-145); Total Protein 7.6 g/dL (6.5-8.0); Triglycerides 84 mg/dL (<150)
[2024-11-21 11:56] LABS: Thyroid Stimulating Hormone 1.61 uIU/mL (0.32-4.0)
== END 2024-11-21 10:16 | disposition home or self-care (01) ==
LOC: HO.LAB 10:15
PROVIDERS: PCP Internal Medicine; Visit Provider Internal Medicine
DX: I10 Essential (primary) hypertension (principal)
CPT/HCPCS: 36415; 80048; 80061; 80076; 81003; 84443; 85027

== ENCOUNTER 2024-11-27 08:28 | Outpatient (AMB) | payer MEDICARE, SELFPAY ==
--- NOTE | 2024-11-27 08:47 | MHC.PC.OV ---
Vital Signs 11/27/24 08:49 Height 5 ft 7 in Weight 198 lb 8 oz BMI 31.1 BP 130/68 Blood Pressure Location Lt brachial Position Sitting Pulse 80 Pulse Source Pulse Oximeter Temp 97.3 F Temp Source Temporal Artery Scan Pulse Oximetry (%) 98 Oxygen Delivery Method Room Air Intake Visit Reasons: 6 Month F/U - see comments Intake Note: Patient is here to follow up on HTN, Hypercholesterolemia, Hypothyroidism. Quality Director Required: No Assistant Boiler Operator: Not Required per policy Accompanied by: Self / Same As Patient Allergies clindamycin Allergy (Mild, Verified 11/27/24 08:49) unknown amoxicillin Allergy (Unknown, Verified 11/27/24 08:49) hives environmental allergies Allergy (Mild, Uncoded 11/27/24 08:49) itch eye, runny nose, Tobacco use date assessed: 11/27/24 Fall risk assessment: No Falls in past year Last assessed Fall Risk: 11/27/24 Dental Screening Dental Screen Date: 05/29/24 FOR[facility]LY [facility], [facility] Medical History History of breast cancer Lymphadenopathy Breast cancer Essential (primary) hypertension Allergic rhinitis Borderline hypercholesterolemia Surgical History History of colonoscopy with polypectomy (~01/20/19) History of eyelid surgery History of lumpectomy of right breast History of wisdom tooth extraction Family History Mother No problems noted. Father No problems noted. Social History Housing: House Alcohol intake: current Alcohol intake frequency: holidays/special occasions only Alcohol type: wine Patient Tobacco Use Status: Former Tobacco user (2006) Tobacco use type: Cigarette e-Cigarette/Vaping Use: Never Used Second Hand Smoke Exposure: Yes service: No Current occupational status: retired Cognitive needs: No Hearing needs: No Vision needs: Yes (Glasses) Questionnaire PHQ-9 Over the last 2 weeks, how often have you been bothered by any of the following problems? 1. Little interest or pleasure in doing things: not at all 2. Feeling down, depressed, or hopeless: not at all 3. Trouble falling or staying asleep, or sleeping too much: not at all 4. Feeling tired or having little energy: not at all 5. Poor appetite or overeating: not at all 6. Feeling bad about yourself - or that you are a failure or have let yourself or your family down: not at all 7. Trouble concentrating on things, such as reading the newspaper or watching television: not at all 8. Moving or speaking so slowly that other people could have noticed. Or the opposite - being so fidgety or restless that you have been moving around a lot more than usual: not at all 9. Thoughts that you would be better off or of hurting yourself in some way: not at all Total score: 0 Depression Screening Interpretation: Negative Depression Screening Done: Yes Source: Developed by Drs. Jovon Austin, Sera Peña, Tonny Gilmore and colleagues, with an educational osmar from [employer]. Thrive Questionnaire Date Thrive assessed: 11/27/24 I am a: Patient What is your living situation today?: I have a steady place to live Within the past 12 months, did the food you bought not last and you didn't have the money to get more?: Never true Within the past 12 months, did you worry whether your food would run out before you got money to buy more?: Never true Do you have trouble paying for medicines?: No Do you have trouble getting transportation to medical appointments?: No Do you have trouble paying your heating and electricity bill?: No Do you have trouble taking care of your child, family member or friend?: No Do you have trouble with day-to-day activities such as bathing, preparing meals, shopping, managing finances, etc.?: No Are you currently unemployed and looking for a job?: No Are you interested in more education?: No Please select the resources that you would like help with: None Currently or been in a relationship where the following occur: I choose not to answer THRIVE Score: 0 AUDIT C Alcohol Use Questionnaire (AUDIT-C) 1. How often do you have a drink containing alcohol?: Monthly or less Total Score: 1 ISRAEL-7 AMB Questionnaire ISRAEL-7 Date ISRAEL - 7 assessed: 05/29/24 Source: Developed by Drs. Jovon Austin, Sera Peña, Tonny Gilmore and colleagues, with an educational osmar from [employer]. Physical exam (Primary Care) Vital Signs: Last Vital Signs Temp 97.3 F 11/27/24 08:49 Pulse 80 11/27/24 08:49 BP 130/68 11/27/24 08:49 Pulse Ox 98 11/27/24 08:49 Oxygen Delivery Method Room Air 11/27/24 08:49 BMI result Body Mass Index 31.1 Tobacco/Smoking Status: Tobacco use Status Tobacco use date assessed 11/27/24 11/27/24 08:54 Patient Tobacco Use Status Former Tobacco user (2006) 11/27/24 08:54 Tobacco use type Cigarette 11/27/24 08:54 e-Cigarette/Vaping Use Never Used 11/27/24 08:54 PHQ-9: PHQ-9 Score PHQ-9: Total score 0 11/27/24 08:54 Depression Screening Interpretation: Negative Thrive Assessment: Date of Thrive Assessment Date Thrive assessed 11/27/24 11/27/24 08:54 Currently or been in a relationship where the following occur: I choose not to answer Coding Level of Care Code Est Pt Level 4 (30631) Complex EM visit Add On G2211 Diagnoses Essential (primary) hypertension I10 Borderline hypercholesterolemia E78.00 Breast cancer C50.919 Tendinitis of left wrist M77.8 Assessment & Plan Assessment & Plan (1) Essential (primary) hypertension: Code(s): I10 - Essential (primary) hypertension Category: Medical Plan: BP is in range. Continue current medications (2) Borderline hypercholesterolemia: Code(s): E78.00 - Pure hypercholesterolemia, unspecified Category: Medical Plan: BW revd. LDL in range (3) Breast cancer: Code(s): C50.919 - Malignant neoplasm of unspecified site of unspecified female breast Category: Medical Plan: Condition is stable. (4) Tendinitis of left wrist: Code(s): M77.8 - Other enthesopathies, not elsewhere classified Plan: NSAID added to the regimen. Use an ANDREW wrap Plan History of Present Illness - The patient is a 64-year-old female presenting with wrist discomfort and a lump. - Recent trauma to the wrist has led to a lump and discomfort, particularly during dexterous activities, with pain radiating to the thumb and pinky. - Blood work from November 21 showed normal results for kidney, thyroid, cholesterol, and liver functions. - Preventative care includes a recent mammogram and an upcoming colonoscopy. Social History Review of Systems - Musculoskeletal: Reports wrist discomfort and a lump, with pain radiating to the thumb and pinky. - General: Denies any other health concerns. Physical Exam General: Cooperative and healthy appearing Nutritional Appearance: Well nourished Orientation/consciousness: Patient oriented x3 Limitations: No limitations Head: Normal to inspection General: Appearance normal, both eyes and all related structures Neck: Normal visual inspection Chest: Normal palpation of entire chest wall Respiratory: No pain reported during breathing exercises. ormal respiratory effort Neurology: Patient oriented x3, reports discomfort in the wrist with dexterous activities, likely due to a ganglion cyst. Results - Labs: Blood work on November 21 showed normal kidney, thyroid, cholesterol, and liver function tests. Plan 1. Ganglion Cyst - Rest the affected wrist for one week to ten days, avoiding lifting and dexterous activities. - Prescribed anti-inflammatory medication to reduce swelling, to be taken once daily with food for one week. - Use a crate bandage to protect the wrist and signal others to avoid contact. Discussion Notes I discussed with the patient that the lump on her wrist is likely a ganglion cyst, which is slightly inflamed. I recommended resting the wrist and prescribed an anti-inflammatory medication to reduce swelling. I advised using a crate bandage to protect the wrist and prevent further injury. Follow-up care was discussed to ensure improvement. Patient Instructions - Rest your wrist for one week to ten days, avoiding lifting and dexterous activities. - Take the prescribed anti-inflammatory medication once daily with food for one week. - Use a crate bandage to protect your wrist and remind others to avoid contact.
[2024-11-27 08:49] VITALS: BP 130/68; PULSE 80; TEMP 36.3; O2SAT 98; BMI 31.1
== END 2024-11-27 10:00 | disposition home or self-care (01) ==
LOC: HO.HMCH 08:29
PROVIDERS: PCP Internal Medicine; Visit Provider Internal Medicine
DX: I10 Essential (primary) hypertension (principal); E78.00 Pure hypercholesterolemia, unspecified; C50.919 Malignant neoplasm of unspecified site of unspecified female breast; M77.8 Other enthesopathies, not elsewhere classified

== ENCOUNTER → 2024-11-27 08:28 | Outpatient (BNVA) | payer MEDICARE, SELFPAY | PROVIDERS: PCP Internal Medicine; Visit Provider Internal Medicine | DX: I10 Essential (primary) hypertension (principal); E78.00 Pure hypercholesterolemia, unspecified; M77.8 Other enthesopathies, not elsewhere classified; Z85.3 Personal history of malignant neoplasm of breast | CPT/HCPCS: 99212 ==

== ENCOUNTER 2025-01-29 08:12 | Outpatient (REF) | payer MEDICARE, SELFPAY ==
--- NOTE | ~2025-01-29 | XR_ITS ---
EXAMINATION: XR WRIST 3 OR MORE VIEWS LEFT HISTORY: M25.532 - Pain in left wrist COMPARISON: There are no prior studies available for comparison. FINDINGS: Three views of the left wrist are submitted. Osseous mineralization is normal. There is no fracture or dislocation. There is moderate osteoarthritis between the scaphoid and trapezium, with joint space narrowing. The soft tissues are unremarkable. XR/XR wrist LT min 3V IMPRESSION: Moderate osteoarthritis as described. Electronically signed by: Jovon Hope MD 01/29/2025 02:35 PM EDT
== END 2025-01-29 08:13 | disposition home or self-care (01) ==
LOC: HO.HOSX 08:12
PROVIDERS: Visit Provider Physician Assistant
DX: M19.032 Primary osteoarthritis, left wrist (principal); R22.32 Localized swelling, mass and lump, left upper limb
CPT/HCPCS: 73110; 99202

== ENCOUNTER 2025-01-29 14:09 | Outpatient (AMB) | payer MEDICARE, SELFPAY ==
--- NOTE | 2025-01-29 14:28 | A.OFFVIS_ITS ---
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 Patient reports lump has been present for a couple of months located at the volar aspect of wrist. She mention s that she did hit her wrist shortly before she noticed the lump. Followed up with PCP who placed her on meloxicam and suggested a compression wrap. She states that helped however lump and pain returned. Her pain is mostly located in her wrist however at times travels to her small finger. No numbness or tingling. 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 Allergies clindamycin Allergy (Mild, Verified 01/29/25 14:41) unknown amoxicillin Allergy (Unknown, Verified 01/29/25 14:41) hives environmental allergies Allergy (Mild, Uncoded 01/29/25 14:41) itch eye, runny nose, HPI HPI LICENSED NURSING ASSISTANT- Left Ganglion Cyst on wrist: Details: 64-year-old female presents to the office today for a mass located on the volar aspect of her wrist in line with the thumb which has been present for approximately 2 months. She is right hand dominant. She states the mass is smaller in the morning worse throughout day. She denies pain but states it can be uncomfortable throughout the day and also experiences a burning sensation. She has some discomfort with management consulting strength but denies numbness or tingling. [facility] Medical History History of breast cancer Lymphadenopathy Breast cancer Essential (primary) hypertension Allergic rhinitis Borderline hypercholesterolemia Surgical History History of colonoscopy with polypectomy (~01/20/19) History of eyelid surgery History of lumpectomy of right breast History of wisdom tooth extraction Family History Mother No problems noted. Father No problems noted. Social History (Updated 01/29/25 @ 14:34 by KUSUM Sebastian) Housing: House Alcohol intake: current Alcohol intake frequency: holidays/special occasions only Alcohol type: wine Patient Tobacco Use Status: Former Tobacco user Tobacco use type: Cigarette e-Cigarette/Vaping Use: Never Used Second Hand Smoke Exposure: Yes service: No Current occupational status: retired Current occupation: right hand dominant Cognitive needs: No Hearing needs: No Vision needs: Yes (Glasses) Review of Systems Const All systems reviewed & are unremarkable except as noted in HPI and below Physical Exam Vital Signs: BMI result Body Mass Index 31.0 Const General: cooperative and no acute distress Orientation/consciousness: patient oriented x3 Resp Effort & Inspection: normal respiratory effort and able to speak in complete sentences Cardio Peripheral pulses: Peripheral pulses 2+ throughout Neuro General: patient oriented x3 Extrem Other: Left wrist is normal to inspection she does have a nickel sized mass along the radial aspect of her wrist on the volar side. It does appear to be pulsatile. There is no tenderness to palpation. She is neurovascularly intact. Results Reviewed Results Reviewed: X-rays of the left wrist obtained in the office today and reviewed by me show severe arthritis at the base of the thumb Assessment & Plan Assessment & Plan (1) Mass of left wrist: Code(s): R22.32 - Localized swelling, mass and lump, left upper limb Category: Medical Plan: She was given a Velcro thumb spica splint to wear at night and with any type of lifting activity. I also ordered an MRI with and without contrast to further evaluate the integrity of the mass for potential surgical planning. The patient is content with this plan and I will contact her once the results are back. Orders: Orders MR wrist LT wo/w con Today R22.32 - Localized swelling, mass and lump, left upper limb XR wrist LT min 3V Today M25.532 - Pain in left wrist Coding Level of Care Code New Pt Level 3 (43586) Complex EM visit Add On G2211 Diagnoses Mass of left wrist R22.32
[2025-01-29 14:41] VITALS: BMI 31.0
== END 2025-01-29 15:27 | disposition home or self-care (01) ==
LOC: HO.HOS 14:10
PROVIDERS: PCP Internal Medicine; Visit Provider Physician Assistant
DX: R22.32 Localized swelling, mass and lump, left upper limb (principal)
CPT/HCPCS: 99203; G2211

== ENCOUNTER → 2025-01-29 14:18 | Outpatient (BNV) | payer MEDICARE, SELFPAY | PROVIDERS: Visit Provider Radiology Diagnostic Radiology | DX: M19.032 Primary osteoarthritis, left wrist (principal) | CPT/HCPCS: 73110 ==

== ENCOUNTER → 2025-02-20 13:40 | Outpatient (BNV) | payer MEDICARE, SELFPAY | PROVIDERS: PCP Internal Medicine; Visit Provider Radiology Diagnostic Radiology | DX: R22.32 Localized swelling, mass and lump, left upper limb (principal) | CPT/HCPCS: 73223 ==

== ENCOUNTER 2025-02-20 13:43 | Outpatient (REF) | payer MEDICARE, SELFPAY ==
--- NOTE | ~2025-02-20 | MR_ITS ---
EXAM: MR Wrist Lt Wo/w Con TECHNIQUE: Multiplanar - multisequence imaging through an upper extremity was performed without and with IV contrast. IV contrast: 9 mm Gadavist INDICATION: R22.32 - Localized swelling, mass and lump, left upper limb PRIOR: Wrist x-ray 01/29/2025 FINDINGS: Triangular fibrocartilage complex: There is a perforation through the triangular fibrocartilage 2 mm from the sigmoid notch. Intrinsic wrist ligaments: Scapholunate ligament demonstrates streaky increased signal and is likely torn through the membranous component. The dorsal band is partially torn on the lunate side. The volar band is lax with increased signal and partial tear on the lunate side. Lunotriquetral ligament is grossly intact. Extensor compartments: Extensor tendons are intact and unremarkable. Flexor tendons: There is fluid encircling flexor carpi radialis tendon. The tendon is thickened, irregular, and partially torn distal to the radial articular surface. With contrast, there is hyperenhancement of the thickened synovium. Other flexor tendons are intact and unremarkable. Carpal tunnel and Guyon's canal: Carpal tunnel and Guyon's canal structures are unremarkable. Bones/Marrow: Severe degenerative changes are present in the scaphoid trapezial trapezoid joint with reactive marrow signal change, full-thickness cartilage loss, and degenerative cystic changes in the distal scaphoid and minimally in the base of trapezium. There is also and STT joint effusion. First CMC joint effusion is present. There is mild thickening and hyperenhancement of the synovium. Soft tissues: There is loculated fluid proximal to triquetrum pisiform joint measuring 8 x 6 x 10 mm (CC by AP by transverse). There is thin peripheral enhancement. There is a 3 mm neck extending to the distal radioulnar joint consistent with a synovial cyst. There is also fluid tracking from the joint capsule, just distal to try new fibrocartilage, and extending proximal around the distal 1.5 cm of the ulnar styloid and distal ulna with peripheral enhancement, also consistent with a synovial cyst. MR/MR wrist LT wo/w con IMPRESSION: There is a 8 x 6 x 10 mm (CC by AP by transverse) synovial cyst extending through a 3 mm neck from the distal radioulnar joint located just proximal to triquetrum pisiform joint in the volar ulnar aspect of the wrist. There is a second synovial cyst extending lateral to the distal radius extending from a thin neck on the ulnar side of the wrist just distal to the triangular fibrocartilage. Tenosynovitis and partial tear of extensor carpi radialis tendon distal to the radial articular surface. There is a partial tear of the scapholunate ligament. There is a perforation through the triangular fibrocartilage 2 mm from the sigmoid notch of radius. Surgical changes in the STT joint with a synovitis and joint effusion. Mild first CMC joint synovitis. Electronically signed by: Roshan Hernandez MD 02/20/2025 03:24 PM EDT
== END 2025-02-20 13:44 | disposition home or self-care (01) ==
LOC: HO.MRI 13:43
PROVIDERS: PCP Internal Medicine; Visit Provider Physician Assistant
DX: R22.32 Localized swelling, mass and lump, left upper limb (principal)
CPT/HCPCS: 73223; A9585

== ENCOUNTER 2025-03-25 08:37 | Outpatient (AMB) | payer MEDICARE, SELFPAY ==
--- NOTE | 2025-03-25 08:59 | MHC.OFFVIS ---
Vital Signs 03/25/25 09:09 Height 5 ft 7 in Weight 198 lb BMI 31.0 Intake Visit Reasons: OV Wrist MRI review Intake Note: Alise 64 yr old - hand dominant female presents today for a follow up visit for left wrist mass. Patient reports lump has been present for a couple of months located at the volar aspect of wrist. She mentions that she did hit her wrist shortly before she noticed the lump. Seen by PCP who placed her on meloxicam and suggested a compression wrap. She states that helped however lump and pain returned. Her pain is mostly located in her wrist however at times travels to her small finger. No numbness or tingling. Patient was last seen with Migel Ashby who sent patient for a MRI study to further evaluate the integrity of the mass for potential surgical planning. Allergies clindamycin Allergy (Mild, Verified 03/25/25 09:09) unknown amoxicillin Allergy (Unknown, Verified 03/25/25 09:09) hives environmental allergies Allergy (Mild, Uncoded 03/25/25 09:09) itch eye, runny nose, HPI HPI OV Wrist MRI review: Details: Alise is a 64 year old right hand dominant woman who presents for an MRI review of her left wrist. Her chief complaint today is of pain in the volar radial aspect of her left wrist, worse with activity or use of her wrist. She says this is now a more constant aching pain which worsens with activities. She complains of occasional numbness in her small finger, but this is becoming more frequent. She is a retired nurse. [facility] Medical History History of breast cancer Lymphadenopathy Breast cancer Essential (primary) hypertension Allergic rhinitis Borderline hypercholesterolemia Surgical History History of colonoscopy with polypectomy (~01/20/19) History of eyelid surgery History of lumpectomy of right breast History of wisdom tooth extraction Family History Mother No problems noted. Father No problems noted. Social History Housing: House Alcohol intake: current Alcohol intake frequency: holidays/special occasions only Alcohol type: wine Patient Tobacco Use Status: Former Tobacco user Tobacco use type: Cigarette e-Cigarette/Vaping Use: Never Used Second Hand Smoke Exposure: Yes service: No Current occupational status: retired Current occupation: right hand dominant Cognitive needs: No Hearing needs: No Vision needs: Yes (Glasses) Review of Systems Const All systems reviewed & are unremarkable except as noted in HPI and below Physical Exam Vital Signs: BMI result Body Mass Index 31.0 Const General: cooperative, healthy appearing and no acute distress Orientation/consciousness: patient oriented x3 HEENT Head: Yes normocephalic and Yes atraumatic Eyes EOM: EOMs intact bilaterally Resp Effort & Inspection: normal respiratory effort and able to speak in complete sentences Cardio Jugular venous distension: no JVD Skin General skin exam: turgor normal Rashes: no rashes Neuro General: patient oriented x3 Extrem Other: Evaluation of Left Upper Extremity: The patient is alert, oriented, and in no acute distress Neuro: Median, Ulnar, Radial nerves motor and sensory intact and sensation is normal to the tips of all digits Vascular: Cap refill brisk ROM: She can make a fist and extend al her digits Full wrist ROM Pain with resisted left wrist flexion particularly over the distal FCR tendon. This is where most of her discomfort is. Skin: No lacerations or abrasions. General: No Ecchymosis. No Erythema or evidence of infection. Most tender over the FCR tendon Visble swelling of the distal FCR tendon Negative Leatha test bilaterally No tenderness over the a1 carter or 1st dorsal compartment Radiographs: 3 views of the left wrist from 01/29/25 were reviewed by me today in clinic. They show no fractures or dislocations. There is STT arthritis & early basal joint arthritis MR/MR wrist LT wo/w con IMPRESSION: There is a 8 x 6 x 10 mm (CC by AP by transverse) synovial cyst extending through a 3 mm neck from the distal radioulnar joint located just proximal to triquetrum pisiform joint in the volar ulnar aspect of the wrist. There is a second synovial cyst extending lateral to the distal radius extending from a thin neck on the ulnar side of the wrist just distal to the triangular fibrocartilage. Tenosynovitis and partial tear of extensor carpi radialis tendon distal to the radial articular surface. There is a partial tear of the scapholunate ligament. There is a perforation through the triangular fibrocartilage 2 mm from the sigmoid notch of radius. Surgical changes in the STT joint with a synovitis and joint effusion. Mild first CMC joint synovitis. Electronically signed by: Roshan Hernandez MD 02/20/2025 Dr. Shaw comments regarding the above MRI: She actually has tenosynovitis and a partial tear of the flexor carpi radialis tendon just distal to the radial articular surface. This also appears to be her chief complaint. I did not appreciate any kind of cyst or tenderness over the ulnar or volar ulnar aspect of the wrist. Psych Appearance: grossly normal Affect: normal affect Attitude: cooperative Office Procedures AMB Fracture Care Details: No fracture, injection Fracture Billing Code: Fracture Billing Code Assessment & Plan Assessment & Plan (1) Flexor carpi radialis tendinitis of left wrist: Code(s): M77.8 - Other enthesopathies, not elsewhere classified Category: Medical (2) Numbness and tingling in left hand: Code(s): R20.0 - Anesthesia of skin; R20.2 - Paresthesia of skin Category: Medical Plan Assessment & Plan: 1. Left FCR tendinitis With partial tendon tear 2. Left small finger numbness Symptoms intermittent, and not get daily I educated her about these conditions I discussed operative and non-operative treatment options The patient would like to proceed with an injection & bracing She will continue to wear her velcro thumb spica splint with daily activities I discussed activity modification, she is to limit or avoid any activities which cause her pain She should work on ROM exercises at home I educated them about carpal & cubital tunnel syndrome If her symptoms increase in frequency or severity we may order a NCS Injection #1: The risks and benefits of a steroid injection including but not limited to risk of damage to blood vessels, nerves, tendons, infection, skin bleaching, failure to improve symptoms, increased pain, and possible need for further injections or other intervention were discussed with the patient and the patient wishes to proceed with the steroid injection. Once consent was obtained, I sterilely prepped the area over the FCR tendon sheath of the Left wrist. I then injected the FCR tendon sheath with a combination of 1 mL of dexamethasone (4mg/ml), and 1% lidocaine. The patient tolerated the procedure well with no complications and good resolution of their symptoms prior to leaving clinic. If the patient continues to have pain 6-8 weeks following this injection, they may call to schedule appointment to discuss alternative treatment options She will follow up prn Please note that greater than 45 minutes was spent with this patient going over the history, evaluating the patient and radiographs, formulating possible treatment options, discussing them with the patient, and documenting the visit. Scribed for Cynthia Shaw MD by Aba Suárez, medical assistant internal medicine, on 03/25/25 at 9:10 AM, EST. Coding Level of Care Code Est Pt Level 4 (18596) Diagnoses Flexor carpi radialis tendinitis of left wrist M77.8 Numbness and tingling in left hand R20.0; R20.2 CPT Codes Fracture Care - Fracture Billing Code: Fracture Billing Code ([id number])
[2025-03-25 09:09] VITALS: BMI 31.0
== END 2025-03-25 09:55 | disposition home or self-care (01) ==
LOC: HO.HOS 08:37
PROVIDERS: PCP Internal Medicine; Visit Provider Orthopaedic Surgery
DX: M77.8 Other enthesopathies, not elsewhere classified (principal); R20.0 Anesthesia of skin; R20.2 Paresthesia of skin
CPT/HCPCS: 20550; 99214

== ENCOUNTER → 2025-03-25 | Outpatient (BNVA) | payer MEDICARE, SELFPAY | PROVIDERS: PCP Internal Medicine; Visit Provider Orthopaedic Surgery | DX: M77.8 Other enthesopathies, not elsewhere classified (principal); R20.0 Anesthesia of skin; R20.2 Paresthesia of skin | CPT/HCPCS: 20550; 99212; J1100; J2003 ==